=== PATIENT | male | born 1985 | race Caucasian/White ===

== ENCOUNTER → 2022-11-10 | Outpatient (CLI) | payer OTHER | END | disposition home or self-care (01) | LOC: RAD 11:36 | PROVIDERS: ATTEND Nurse Practitioner Primary Care | DX: M50.322 Other cervical disc degeneration at C5-C6 level (principal); M54.41 Lumbago with sciatica, right side ==

== ENCOUNTER 2023-12-11 01:36 | Emergency (ER) | payer OTHER ==
[~2023-12-11] VITALS: Ht 182.8 cm; Wt 72.6 kg
[2023-12-11 02:23] LABS: BASO # 0.1 10*3/uL (0.0-0.1); BASO % 0.6 % (0.0-1.0); EOS # 0.3 10*3/uL (0.0-0.4); EOS % 3.8 % (1.0-4.0); HEMATOCRIT 41.2 % (42.0-52.0); LYMPH # 2.1 10*3/uL (1.3-4.4); LYMPH % 24.1 % (27.0-41.0); MEAN CELL VOLUME 84.9 fl (80.0-94.0); MEAN CORPUSCULAR HGB 28.5 pg (27.0-31.0); MEAN CORPUSCULAR HGB CONC 33.5 g/dl (33.0-37.0); MEAN PLATELET VOLUME 9.5 fl (9.6-12.3); MONO # 0.5 10*3/uL (0.1-1.0); MONO % 5.5 % (3.0-9.0); NEUT # 5.7 10*3/uL (2.3-7.9); NEUT % 65.8 % (47.0-73.0); PLATELET COUNT AUTOMATED 318 10*3/uL (130-400); RED BLOOD COUNT 4.85 10*6/uL (4.50-5.90); RED CELL DISTRI WIDTH 12.5 % (0-14.5); WHITE BLOOD COUNT 8.6 10*3/uL (4.8-10.8)
[2023-12-11 02:34] LABS: ACT PARTIAL THROMBO TIME 28.8 SECONDS (20.0-32.1)
[2023-12-11 02:45] LABS: ALKALINE PHOSPHATASE 95 U/L (46-116); BUN 10 mg/dl (9-23); CHLORIDE 103 mmol/L (98-107); LIPASE 52 U/L (12-53); POTASSIUM 3.8 mmol/L (3.4-5.1); SGPT/ALT 11 U/L (5-49); TOTAL PROTEIN 7.3 gm/dL (6.0-8.0)
[2023-12-11 04:13] LABS: BILIRUBIN Negative (Negative); BLOOD Negative (Negative); CLARITY Clear (Clear); COLOR Yellow (Yellow); GLUCOSE Negative (Negative); KETONE Negative (Negative); LEUKO ESTERASE 2+ (Negative); NITRITE Positive (Negative); PH 6.5 (4.5-8.0); UROBILINOGEN 0.2 E.U./dl (0.0-1.0)
[2023-12-11 04:20] LABS: BACTERIA 4+; WBC 31-40 wbc/hpf (0-5)
[2023-12-11 04:21] LABS: URINE AMPHETAMINES Positive (1000ng/ml); URINE BARBITURATES Negative (200ng/ml); URINE BENZODIAZEPINES Negative (200ng/ml); URINE CANNABINOIDS (THC) Positive (50ng/ml); URINE COCAINE Negative (300ng/ml); URINE METHADONE Negative (300ng/ml); URINE OPIATES Negative (300ng/ml); URINE PHENCYCLIDINE Negative (25ng/ml)
[2023-12-11] MEDS ORDERED: Ciprofloxacin Hydrochloride 500 MG TAB PO ONE (04:25)
[2023-12-11] MEDS ORDERED: ACETAMINOPHEN 325 MG TAB PO ONE (04:25)
[2023-12-11] MEDS ORDERED: CIPRO500 MG PO (04:29)
== END 2023-12-11 04:36 | disposition home or self-care (01) ==
LOC: ED 01:36
PROVIDERS: Internal Medicine
DX: S00.83XA Contusion of other part of head, initial encounter (principal); M54.2 Cervicalgia; R55 Syncope and collapse; N39.0 Urinary tract infection, site not specified; F41.9 Anxiety disorder, unspecified; F19.10 Other psychoactive substance abuse, uncomplicated; Z88.0 Allergy status to penicillin; Z87.891 Personal history of nicotine dependence; W19.XXXA Unspecified fall, initial encounter; Y93.89 Activity, other specified; Y92.89 Other specified places as the place of occurrence of the external cause; Y99.8 Other external cause status

== ENCOUNTER 2024-11-15 18:20 | Emergency (ER) | payer OTHER ==
[~2024-11-15 18:20] MED LIST: CIPRO500 MG PO
== END 2024-11-15 18:38 | disposition home or self-care (01) ==
LOC: ED 18:20
DX: F15.10 Other stimulant abuse, uncomplicated (principal); F41.9 Anxiety disorder, unspecified; Z88.0 Allergy status to penicillin